=== PATIENT | female | born 1965 | race Caucasian/White ===

== ENCOUNTER 2017-04-30 07:00 | Day surgery (SDC) | payer OTHER ==
[~2017-04-30] VITALS: Ht 167.6 cm; Wt 75.0 kg
[~2017-04-30 07:00] MED LIST: 0.9% Sodium Chloride 1,000 ML IV SCH; ALPR0.5T8 PO; BACI1CAP6 PO; CITA20TA PO; COD1CAPS16 PO; HYDR-4003 PO; L-NO1TBD PO; MULT-1018 PO; Sodium Chloride LOK Flush 10 mL Syringe IV PRN; fentaNYL-PF 50 mCg/mL 2 mL Inj IVPUSH PRN
[2017-04-30] MEDS ORDERED: fentaNYL-PF 50 mCg/mL 2 mL Inj IVPUSH ONE (07:01)
[2017-04-30 07:41] VITALS: BP 128/85; PULSE 65; RESP 14; O2SAT 98
[2017-04-30 08:24] VITALS: BP 120/75; PULSE 70; RESP 14; O2SAT 95
[2017-04-30 08:35] VITALS: BP 121/74; PULSE 63; RESP 14; O2SAT 97
--- NOTE | 2017-05-01 00:29 | ENDO ---
[address] [address] ENDOSCOPY PROCEDURE PATIENT: KIMBERLY MIGUEL : 1965 MR#: [id number] ADMIT: 04/30/2017 JOB ID: [id number] DATE OF SERVICE: PROCEDURE: Colonoscopy. INDICATIONS: Screening. Patient's ASA classification is two. Mallampati score is two. MEDICATIONS: Versed 5 mg, fentanyl 100 mcg. INSTRUMENT USED: PCF H-180 AL. PREP QUALITY: Good. PROCEDURE DETAILS: After informed consent was obtained, the patient was brought into the GI suite, where she was placed on oxygen via nasal cannula and monitored with continuous pulse oximeter, telemetry, and blood pressure monitoring. A time-out was performed. Then, she was placed in the left lateral decubitus position and medications were administered for sedation. A digital rectal exam was performed which was unremarkable. Colonoscope was then inserted into the rectum and advanced under direct visualization to the cecum, which was identified by the presence of the ileocecal valve and appendiceal orifice. Once the cecum was reached, the colonoscope was then withdrawn back in the rectum. The mucosa and lumen were examined. In the rectum, retroflexion was performed. Following retroflexion, remaining air in the rectum was suctioned and procedure was completed. FINDINGS: 1. In the transverse colon, there was a diminutive polyp that was removed with cold biopsy forceps. 2. Otherwise, normal exam from rectum to cecum. IMPRESSION: Transverse colon polyp. RECOMMENDATIONS: Repeat colonoscopy in five years, sooner if symptoms should dictate. COMPLICATIONS: None. ESTIMATED BLOOD LOSS: Less than 5 mL.
--- NOTE | 2017-05-03 17:18 | PATH ---
SURGICAL PATHOLOGY Attending Physician:Soto Donis CASE STATUS: Signed Out PATIENT NAME: KIMBERLY MIGUEL PID: [id number] : 1965 DATE COLLECTED:04/30/2017 16:04 SPECIMEN: Colon, Biopsy CLINICAL HISTORY: 1. TRANSVERSE COLON POLYP FINAL DIAGNOSIS: Transverse Colon Polyp, Biopsy: Portion of tubular adenoma x1; negative for high-grade dysplasia. Superficial portion of colorectal mucosa x1 with no significant histomorphologic abnormality. ICD10: K63.5 GROSS DESCRIPTION: The specimen is received in one formalin filled container labeled with the patient's name, sublabeled "transverse colon polyp" and consists of 2 portions of tissue which aggregate to 0.3 x 0.3 x 0.2 CM. The specimen is entirely submitted in one cassette. 04/30/2017 [facility] ICD-9 CODES: CPT CODES: 1: 84632 Electronically Signed Out Nilsa Ruiz MD [facility] Pathology [facility] [address], [place] [address] Technical component performed at [facility], [address] [place] [address] Ave[address], [address]
== END 2017-04-30 23:59 | disposition home or self-care (01) ==
LOC: END 07:00
PROVIDERS: ATTEND Internal Medicine Gastroenterology
DX: Z12.11 Encounter for screening for malignant neoplasm of colon (principal); D12.3 Benign neoplasm of transverse colon
CPT/HCPCS: 45380; G0500; J2250; J3010; J7030